=== PATIENT | female | born 1985 | race Hispanic/Latino ===

== ENCOUNTER 2019-09-03 02:34 | Inpatient (IN) | payer MEDICAID, SELFPAY ==
[2019-09-03 03:15] VITALS: BMI 25.0
[2019-09-03] MEDS ORDERED: Acetaminophen 500 MG TAB PO PRN (03:48)
[2019-09-03] MEDS ORDERED: Ibuprofen 800 MG TAB PO PRN (03:48)
[2019-09-03] MEDS ORDERED: Ondansetron PF 4 MG/2 ML Vial IVP PRN (03:48)
[2019-09-03] MEDS ORDERED: Diphenoxylate HCl/Atropine Tablet PO PRN ×2 (03:48)
[2019-09-03] MEDS ORDERED: Lidocaine 1% (PF) 30 ML VIAL SC PRN (03:48)
[2019-09-03] MEDS ORDERED: Methylergonovine 0.2 MG/ML VIAL IM PRN (03:48)
[2019-09-03] MEDS ORDERED: Promethazine HCl 25 MG/ML VIAL IM PRN (03:48)
[2019-09-03] MEDS ORDERED: Misoprostol 200 MCG TAB PR PRN (03:48)
[2019-09-03] MEDS ORDERED: hydrALAZINE 20 MG/ML VIAL SLOW IVP PRN ×2 (03:48→13:25)
[2019-09-03] MEDS ORDERED: Carboprost 250 MCG/ML AMP IM PRN (03:48)
[2019-09-03] MEDS ORDERED: NS / Oxytocin 40 units/1000ml 1,000 ML IV PRN (03:48)
[2019-09-03] MEDS ORDERED: HYDROcodone/Acetaminophen 5/325 mg Tablet PO PRN ×3 (03:48→13:25)
[2019-09-03] MEDS ORDERED: Butorphanol Tartrate 1 MG/ML VIAL SLOW IVP PRN (03:48)
--- NOTE | 2019-09-03 03:52 | PDOC.LDHP ---
Labor and Delivery H&P Chief complaint: contractions HPI: 34 y/o at 39w4d, patient of Dr. Mercado, presents with ctx since 11pm. Denies VB, LOF, or other OB complaints. ROS neg for HEENT, cv, pulm, gi, gu, neuro, psych, skin, musculoskeletal or constitutional symptoms other than mentioned above. OB History Details: 3 prior term SVDs Current complications: none Past Medical History: None Current medications: pre- vitamins Previous surgical history: other (breast lumpectomy - benign) Allergies/Adverse Reactions: Allergies Allergy/AdvReac Type Severity Reaction Status Date / Time No Known Allergies Allergy Verified 06/25/14 01:47 Social history: none - Physical Exam Vital signs reviewed and normal: yes General: NAD, resting Lungs: nonlabored breathing Abdomen: gravid Extremeties: no edema FHT: category 1 (140s, mod variability, + accels, no decels) [place] contractions every: 5 mins - Vaginal Exam cm dilated: 5 Effacement: 75% Station: -1 - OB Labs GBS: negative - Assessment L&D Assessment: term patient in labor - Plan Plan: admit to L&D, labor augmentation if indicated, informed consent obtained
[2019-09-03] MEDS ORDERED: Lactated Ringer's 1,000 ML IV SCH (04:00)
[2019-09-03 04:31] LABS: Hemoglobin 12.3 g/dL (12.0-16.0); Mean Corpuscular HGB CONC 31.8 g/dL (32.0-36.0); Mean Corpuscular Hemoglobin 23.7 pg (27.0-31.0); Mean Corpuscular Volume 74.4 fL (78.0-98.0); Mean Platelet Volume 11.5 fL (7.4-10.4); Platelet Count 239 thou/uL (130-400); RBC Distribution Width 23.5 % (11.5-14.5); Red Blood Cell (RBC) Count 5.18 mill/uL (4.20-5.40); White Blood Cell (WBC) Count 16.4 thou/uL (4.8-10.8)
[2019-09-03 05:10] LABS: HBSAg Index 0.21 S/CO (0-0.99); Hep B Surf Ag Non-Reactive S/CO (NonReactive)
[2019-09-03 05:18] LABS: Syphilis Antibody Nonreactive (Nonreactive); Syphilis Antibody Index 0.04 S/CO (<1.00 Non-Reactive)
[2019-09-03] MEDS ORDERED: Morphine 10 MG/ML VIAL ONE (09:31)
[2019-09-03] MEDS ORDERED: Morphine 4 MG/ML VIAL SLOW IVP SCH (09:45)
[2019-09-03] MEDS ORDERED: Milk Of Magnesia 30 ML UDCUP PO PRN (13:25)
[2019-09-03] MEDS ORDERED: Bisacodyl 10 MG SUPP PR PRN (13:25)
[2019-09-03] MEDS ORDERED: Adacel (T-DAP) 0.5 ML SYRINGE IM ONE (13:25)
[2019-09-03] MEDS ORDERED: NS / Oxytocin 40 units/1000ml 1,000 ML IV SCH (13:25)
[2019-09-03] MEDS ORDERED: Lanolin Ointment 7 GM TUBE TOP PRN (13:25)
[2019-09-03] MEDS: Ibuprofen 800 MG TAB PO SCH ×2 (14:33→21:19)
[2019-09-03] MEDS: Ferrous Sulfate 325 MG TAB PO SCH (17:54)
[2019-09-03] MEDS ORDERED: FLU VACC QS2019-20(6MOS UP)/PF 60 MCG/0.5 ML SYRINGE IM ONE (21:00)
[2019-09-03] MEDS: Docusate Calcium (SURFAK) 240 MG CAP PO SCH (21:20)
[2019-09-04] MEDS: Ibuprofen 800 MG TAB PO SCH ×2 (07:04→14:03)
[2019-09-04] MEDS: Ferrous Sulfate 325 MG TAB PO SCH (07:42)
--- NOTE | 2019-09-04 07:48 | DIS ---
DATE OF ADMISSION: 09/03/2019 DATE OF DISCHARGE: 09/04/2019 ADMITTING DIAGNOSES: 1. Intrauterine at 39 weeks and 4 days. 2. Labor. DISCHARGE DIAGNOSES: 1. Intrauterine at 39 weeks and 4 days. 2. Labor. PROCEDURE: Term spontaneous vaginal delivery. HOSPITAL COURSE: The patient is a 34-year-old multiparous female presenting in labor at 34 weeks and 4 days gestation and was admitted and under expectant management, delivered by an uncomplicated term spontaneous vaginal delivery. For complete details, please refer to the delivery note. Her course has been uncomplicated. Today is day 1. She is tolerating p.o., voiding on her own, having decreased lochia and good pain control. PHYSICAL EXAMINATION: VITAL SIGNS: This morning, her most recent vital signs, blood pressure is 118/63, temperature 98.3, pulse is 65, respiratory rate is 16. GENERAL: She appears to be in no acute distress. She is alert, oriented, cooperative, and pleasant to interact with. HEAD: Normocephalic, atraumatic. ABDOMEN: Fundus is firm. EXTREMITIES: Nontender, nonedematous. Her post delivery hemoglobin is 10, hematocrit 31.2. DISCHARGE INSTRUCTIONS: The patient is being discharged to home. She has instructions to follow up with Dr. Mercado in 6 weeks or sooner if she experiences fever, increasing pain, or bleeding. She will be discharged with ibuprofen p.r.n. for pain control. If the baby for some reason ends up needing to stay the day or overnight again, we will be holding her discharge until tomorrow. Job ID: [id number]
[2019-09-04 08:20] VITALS: BP 104/65; TEMP 98.8
--- NOTE | 2019-09-04 08:35 | OP ---
DATE OF PROCEDURE: 09/03/2019 DELIVERY NOTE: The patient is a 34-year-old female, who delivered via uncomplicated term spontaneous vaginal delivery on 09/03/2019 at 11:19 a.m. The patient delivered a male infant at 39 weeks and 4 days gestation. Apgars were 8 and 9. weight was 3475 g. Placenta delivered spontaneously followed by Pitocin infusion. There were no lacerations. Quantitative blood loss was [address] Foster is the delivering physician. Mother and baby were stable in the room in the immediate . Job ID: [id number]
[2019-09-04] MEDS ORDERED: Prenatal Vitamin 1 TAB PO SCH (09:00)
[2019-09-04] MEDS: Docusate Calcium (SURFAK) 240 MG CAP PO SCH (09:11)
== END 2019-09-04 17:56 | disposition home or self-care (01) | DRG 807 ==
LOC: L&D/OP 02:34 → L&D 11:02 → 3SW 14:06
PROVIDERS: ADMIT Obstetrics & Gynecology; ATTEND Obstetrics & Gynecology
PROC: 10E0XZZ Delivery of Products of Conception, External Approach (ICD-10-PCS; principal; 2019-09-03)
DX: O80 Encounter for full-term uncomplicated delivery (principal); Z37.0 Single live birth; Z3A.39 39 weeks gestation of pregnancy
CPT/HCPCS: 36415; 51701; 85014; 85018; 85027; 86780; 86850; 86900; 86901; 87340; 99285; J0595; J2001; J2270

== ENCOUNTER 2020-03-05 18:33 | Emergency (ER) | payer SELFPAY ==
[2020-03-05 18:59] LABS: #Basophils 0.1 thou/uL (0.0-0.2); #Eosinphils 0.1 thou/uL (0.0-0.7); #Lymphocytes 2.5 thou/uL (1.20-3.40); #Monocytes 0.4 thou/uL (0.11-0.59); #Neutrophils 6.6 thou/uL (1.40-6.50); %Basophils 1.3 % (0.0-1.0); %Lymphocytes 25.5 % (21.0-51.0); %Monocytes 4.5 % (0.0-10.0); %Neutrophils 67.7 % (42.0-75.0); Hemoglobin 14.7 g/dL (12.0-16.0); Mean Corpuscular HGB CONC 33.3 g/dL (32.0-36.0); Mean Corpuscular Hemoglobin 29.8 pg (27.0-31.0); Mean Corpuscular Volume 89.6 fL (78.0-98.0); Mean Platelet Volume 7.8 fL (7.4-10.4); Platelet Count 307 thou/uL (130-400); RBC Distribution Width 12.4 % (11.5-14.5); Red Blood Cell (RBC) Count 4.94 mill/uL (4.20-5.40); White Blood Cell (WBC) Count 9.8 thou/uL (4.8-10.8)
[2020-03-05 19:05] LABS: BHCG - Serum Negative (NEGATIVE); Pregs Control Background? CLEAR/WHITE (CLR/WHITE); Pregs Control Bar Appear? YES (CONTROL BAR)
[2020-03-05 19:08] LABS: Prothrombin Time 12.9 sec (12.0-14.7)
--- NOTE | 2020-03-05 19:12 | CT ---
CT BRAIN WITHOUT CONTRAST: History: Level II stroke. Right facial numbness. Right arm pain. FINDINGS: No evidence of acute infarct, hemorrhage, midline shift, or abnormal extraaxial fluid collections are seen. The ventricular size is normal and the basilar cisterns patent. The bony calvarium is intact. There is mucosal disease in the right sphenoid sinus. IMPRESSION: No CT evidence of acute intracranial process. POS: [facility]
[2020-03-05 19:20] LABS: ALT (SGPT) 14 U/L (8-55); AST (SGOT) 18 U/L (5-34); Albumin 4.8 g/dL (3.5-5.0); Alkaline Phosphatase 67 U/L (40-110); Anion Gap 12 mmol/L (10-20); BUN (Urea Nitrogen) 19 mg/dL (7.0-18.7); Bilirubin, Total 0.3 mg/dL (0.2-1.2); Calc. Creatinine Clearance 0 mL/min (70-130); Calcium 9.8 mg/dL (7.8-10.44); Carbon Dioxide 24 mmol/L (22-29); Chloride 105 mmol/L (98-107); Estimated GFR-MDRD 88; Globulin 3.7 g/dL (2.4-3.5); Glucose 96 mg/dL (70-105); Potassium 3.6 mmol/L (3.5-5.1); Protein, Total 8.5 g/dL (6.0-8.3); Sodium 137 mmol/L (136-145)
[2020-03-05] MEDS ORDERED: Fentanyl 100 MCG/2 ML VIAL ONE (19:33)
== END 2020-03-05 20:54 | disposition home or self-care (01) ==
LOC: ERS 18:33
DX: G44.209 Tension-type headache, unspecified, not intractable (principal); S46.911A Strain of unspecified muscle, fascia and tendon at shoulder and upper arm level, right arm, initial encounter; R20.0 Anesthesia of skin; M31.6 Other giant cell arteritis; G50.0 Trigeminal neuralgia
CPT/HCPCS: 36416; 70450; 80053; 84484; 84703; 85025; 85610; 85730; 93005; 96374; J3010